=== PATIENT | female | born 2005 | race Caucasian/White ===

== ENCOUNTER 2023-11-03 15:24 | Inpatient (IN) | payer BC ==
[2023-11-03] MEDS ORDERED: Acetaminophen 325 MG Tab PO PRN (15:55)
[2023-11-03] MEDS ORDERED: Sodium Chloride 0.9% 10 ML Syringe FLUSH PRN (15:55)
[2023-11-03] MEDS ORDERED: Lidocaine 1% 50 ML MDV INJECT PRN (15:55)
[2023-11-03] MEDS ORDERED: Misoprostol 25 MCG (1/4 of 100 MCG) Tab VAG PRN (15:55)
[2023-11-03] MEDS ORDERED: Ondansetron 4 MG/2 ML SDV IVPUSH PRN (15:55)
[2023-11-03] MEDS ORDERED: Lactated Ringers 1,000 ML IV SCH (16:00)
[2023-11-03] MEDS ORDERED: Oxytocin/Lactated Ringers 30 UNIT/500 ML BAG IV SCH (16:00)
[2023-11-03 16:36] LABS: BASOPHILS PERCENT AUTO 0.2 % (0.0-1.0); EOSINOPHILS PERCENT AUTO 0.3 % (0.0-6.0); HEMATOCRIT 32.8 % (37.0-47.0); HEMOGLOBIN 11.4 gm/dl (12.0-16.0); IMMATURE GRAN ABSOLUTE AUTO 0.03 K/mm3 (0.00-0.05); IMMATURE GRAN PERCENT AUTO 0.3 % (0.0-0.4); LYMPHOCYTES ABSOLUTE AUTO 1.7 K/mm3 (1.0-4.8); LYMPHOCYTES PERCENT AUTO 19.7 % (24.0-44.0); MEAN CORPUSCULAR HEMOGLOBIN 28.5 pg (28.0-32.0); MEAN CORPUSCULAR HGB CONC 34.8 g/dl (32.0-36.0); MEAN PLATELET VOLUME 10.8 fl (9.4-12.3); MONOCYTES ABSOLUTE AUTO 0.6 K/mm3 (0.0-0.8); MONOCYTES PERCENT AUTO 6.6 % (0.0-8.0); NEUTROPHILS ABSOLUTE AUTO 6.4 K/mm3 (1.8-7.7); NEUTROPHILS PERCENT AUTO 72.9 % (41.0-71.0); PLATELET COUNT,PLT 274 K/mm3 (150-400); WHITE BLOOD CELL COUNT,WBC 8.77 K/mm3 (3.9-11.3)
[2023-11-03 16:44] LABS: CREATININE,URINE RAND 71.6 mg/dL (30.0-125.0); PROTEIN CREATININE RATIO,URINE 166.2 mg/g (0-149); PROTEIN,URINE RANDOM 11.9 mg/dL (0.0-11.8)
[2023-11-03 16:48] LABS: CREATININE 0.6 mg/dL (0.55-1.02); EST CRCL DRUG DOSING (CG) 145.44 mL/min; URIC ACID 4.8 mg/dL (2.6-6.0)
[2023-11-03] MEDS: Oxytocin/Lactated Ringers 30 UNIT/500 ML BAG IV SCH ×2 (22:39→22:42)
[2023-11-03] MEDS ORDERED: ePHEDrine 50 MG/ML SDV IVPUSH PRN (23:19)
[2023-11-03] MEDS ORDERED: diphenhydrAMINE 50 MG/ML SDV IVPUSH PRN (23:19)
[2023-11-03] MEDS ORDERED: Bupivacaine/fentaNYL/NS 100 ML Bag EPIDUR PRN (23:19)
[2023-11-03] MEDS ORDERED: fentaNYL 100 MCG/2 ML SDV EPIDUR PRN (23:19)
[2023-11-04] MEDS ORDERED: Oxytocin/Lactated Ringers 30 UNIT/500 ML BAG IV SCH (02:00)
[2023-11-04] MEDS: Nalbuphine HCl 10 MG/ 1ML Amp IVPUSH PRN ×2 (05:52→08:39)
[2023-11-04] MEDS ORDERED: Lidocaine 1% 10 ML MDV ONE (10:00)
[2023-11-04] MEDS ORDERED: Benzocaine/Menthol 20%-0.5% Spray 78 GM Cannister TOP PRN (12:26)
[2023-11-04] MEDS ORDERED: Acetaminophen 325 MG Tab PO PRN (12:26)
[2023-11-04] MEDS ORDERED: Witch Hazel Medicated Pads 40/Jar TOP PRN (12:26)
[2023-11-04] MEDS ORDERED: Ibuprofen 600 MG Tab PO PRN (12:26)
[2023-11-04] MEDS: Sodium Chloride 0.9% 10 ML Syringe FLUSH SCH (15:47)
== END 2023-11-05 17:40 | disposition home or self-care (01) | DRG 560 ==
LOC: JD.OBCHECK 15:24 → JD.OB 15:55 → OBSVTOIN 11-04 10:09 → JD.OB 11-04 10:09
PROVIDERS: ADMIT Obstetrics & Gynecology; ATTEND Obstetrics & Gynecology
PROC: 10E0XZZ Delivery of Products of Conception, External Approach (ICD-10-PCS; principal; 2023-11-04)
PROC: 3E0P7VZ Introduction of Hormone into Female Reproductive, Via Natural or Artificial Opening (ICD-10-PCS; 2023-11-04)
PROC: 3E0R3BZ Introduction of Anesthetic Agent into Spinal Canal, Percutaneous Approach (ICD-10-PCS; 2023-11-04)
PROC: 10907ZC Drainage of Amniotic Fluid, Therapeutic from Products of Conception, Via Natural or Artificial Opening (ICD-10-PCS; 2023-11-04)
PROC: 00HU33Z Insertion of Infusion Device into Spinal Canal, Percutaneous Approach (ICD-10-PCS; 2023-11-04)
PROC: 0HQ9XZZ Repair Perineum Skin, External Approach (ICD-10-PCS; 2023-11-04)
PROC: 3E033VJ Introduction of Other Hormone into Peripheral Vein, Percutaneous Approach (ICD-10-PCS; 2023-11-04)
DX: O13.4 Gestational [pregnancy-induced] hypertension without significant proteinuria, complicating childbirth (principal); O70.0 First degree perineal laceration during delivery; Z3A.39 39 weeks gestation of pregnancy; Z37.0 Single live birth
CPT/HCPCS: 36415; 51701; 59025; 59409; 82565; 82570; 83615; 84156; 84450; 84460; 84520; 84550; 85025; 86592; 86850; 86900; 86901; A9270-GY; J2300; J3010; J3490; J7120; J7999